=== PATIENT | female | born 1955 | race Caucasian/White ===

== ENCOUNTER 2021-06-24 11:28 | Emergency (ER) | payer SELFPAY ==
[2021-06-24 18:46] LABS: SARS-CoV-2 PCR by NAA Not Detected (NotDetected)
== END 2021-06-24 12:15 | disposition home or self-care (01) ==
LOC: MADERS 11:28
DX: J02.9 Acute pharyngitis, unspecified (principal); I10 Essential (primary) hypertension; J45.909 Unspecified asthma, uncomplicated
CPT/HCPCS: 87081; 87430; 99283; U0003; U0005

== ENCOUNTER 2021-09-09 00:32 | Emergency (ER) | payer SELFPAY ==
[2021-09-09] MEDS ORDERED: Ondansetron PF 4 MG/2 ML Vial ONE (01:14)
[2021-09-09] MEDS ORDERED: Promethazine HCl 25 MG/ML VIAL ONE (01:36)
[2021-09-09] MEDS ORDERED: Sodium Chloride 0.9% 500 ML ONE (01:37)
== END 2021-09-09 02:04 | disposition home or self-care (01) ==
LOC: MADERS 00:32
DX: A05.9 Bacterial foodborne intoxication, unspecified (principal); I10 Essential (primary) hypertension
CPT/HCPCS: 96365; 96375; J2405; J2550; J7030

== ENCOUNTER 2022-06-24 14:23 | Inpatient (IN) | payer MEDICARE ==
[2022-06-24] MEDS ORDERED: Bisacodyl 5 MG TAB PO PRN (18:44)
[2022-06-24] MEDS ORDERED: Acetaminophen 325 MG TAB PO PRN (18:44)
[2022-06-24] MEDS ORDERED: Melatonin 3 MG TAB PO PRN (18:44)
[2022-06-24] MEDS ORDERED: Bisacodyl 10 MG SUPP PR PRN (18:44)
[2022-06-24] MEDS ORDERED: Scopolamine 1.5 mg/72 hour Patch TD SCH (20:00)
[2022-06-24] MEDS: diphenhydrAMINE 25 MG CAP PO SCH ×2 (21:27→21:28)
[2022-06-24] MEDS: Gabapentin 300 MG CAP PO SCH (21:29)
[2022-06-24] MEDS: Famotidine 20 MG TAB PO SCH ×2 (21:29→22:58)
[2022-06-24] MEDS: Senokot S 8.6-50 MG TAB PO SCH (21:31)
[2022-06-24] MEDS: traMADol HCl 50 MG TAB PO SCH (23:17)
[2022-06-24] MEDS: Acetaminophen 500 MG TAB PO SCH (23:19)
[2022-06-25] MEDS: traMADol HCl 50 MG TAB PO SCH ×4 (06:33→23:12)
[2022-06-25] MEDS: Acetaminophen 500 MG TAB PO SCH ×4 (06:34→23:13)
[2022-06-25] MEDS: Ferrous Sulfate 325 MG TAB PO SCH (08:53)
[2022-06-25] MEDS: Ascorbic Acid 500 mg Chewable Tablet PO SCH (08:53)
[2022-06-25] MEDS: Gabapentin 300 MG CAP PO SCH ×3 (08:53→20:47)
[2022-06-25] MEDS: Senokot S 8.6-50 MG TAB PO SCH ×2 (08:53→20:51)
[2022-06-25] MEDS: Famotidine 20 MG TAB PO SCH ×4 (08:55→20:46)
[2022-06-26] MEDS: traMADol HCl 50 MG TAB PO SCH ×3 (06:19→17:58)
[2022-06-26] MEDS: Acetaminophen 500 MG TAB PO SCH ×3 (06:20→18:00)
[2022-06-26] MEDS: Gabapentin 300 MG CAP PO SCH ×3 (08:32→21:53)
[2022-06-26] MEDS: Famotidine 20 MG TAB PO SCH ×2 (08:32→21:53)
[2022-06-26] MEDS: Senokot S 8.6-50 MG TAB PO SCH ×2 (08:32→21:53)
[2022-06-26] MEDS: Ferrous Sulfate 325 MG TAB PO SCH (08:36)
[2022-06-26] MEDS: Ascorbic Acid 500 mg Chewable Tablet PO SCH (08:36)
[2022-06-26 09:10] LABS: Bilirubin Negative (Negative); Blood, Urine Negative (Negative); Glucose, Urine (Dipstick) Negative (Negative); Ketone, Urine Negative (Negative); Leukocyte Large (Negative); Nitrite Negative (Negative); Protein, Urine (Dipstick) Negative (Neg-Trace); Specific Gravity, Urine 1.015 (1.005-1.030)
[2022-06-26 09:11] LABS: Clarity Turbid (Clear)
[2022-06-26 09:12] LABS: Bacteria/HPF 4+ HPF (None Seen); CAUTI Indications for Culture Dysuria,urgency,freq; RBC/HPF 0-3 HPF (0-3); WBC/HPF Greater than 50 HPF (0-3)
[2022-06-26 09:14] LABS: Urine Culture Reflex Yes Yes
[2022-06-26] MEDS ORDERED: FLU VACC QS2022-23(65YR UP)/PF 240 MCG/0.7 ML SYRINGE IM ONE (18:00)
[2022-06-26] MEDS: Scopolamine 1.5 mg/72 hour Patch TD SCH (21:50)
[2022-06-26] MEDS: diphenhydrAMINE 25 MG CAP PO SCH (21:52)
[2022-06-27] MEDS: Acetaminophen 500 MG TAB PO SCH ×4 (00:01→18:10)
[2022-06-27] MEDS: traMADol HCl 50 MG TAB PO SCH ×4 (05:41→18:09)
[2022-06-27] MEDS: Ibuprofen 200 MG TAB PO PRN (08:30)
[2022-06-27] MEDS: Ascorbic Acid 500 mg Chewable Tablet PO SCH (08:31)
[2022-06-27] MEDS: Senokot S 8.6-50 MG TAB PO SCH ×2 (08:32→20:40)
[2022-06-27] MEDS: Gabapentin 300 MG CAP PO SCH ×3 (08:32→20:40)
[2022-06-27] MEDS: Famotidine 20 MG TAB PO SCH ×2 (08:32→20:40)
[2022-06-27] MEDS: Ferrous Sulfate 325 MG TAB PO SCH (08:33)
[2022-06-27] MEDS: diphenhydrAMINE 25 MG CAP PO SCH (20:40)
[2022-06-27] MEDS ORDERED: FLU VACC QS2022-23(65YR UP)/PF 240 MCG/0.7 ML SYRINGE IM ONE (23:45)
[2022-06-28] MEDS: traMADol HCl 50 MG TAB PO SCH ×4 (00:19→23:37)
[2022-06-28] MEDS: Acetaminophen 500 MG TAB PO SCH ×4 (00:20→23:36)
[2022-06-28] MEDS: Gabapentin 300 MG CAP PO SCH ×2 (08:05→20:42)
[2022-06-28] MEDS: Ferrous Sulfate 325 MG TAB PO SCH (08:05)
[2022-06-28] MEDS: Senokot S 8.6-50 MG TAB PO SCH ×2 (08:05→20:42)
[2022-06-28] MEDS: Famotidine 20 MG TAB PO SCH ×2 (08:06→20:42)
[2022-06-28] MEDS: Ascorbic Acid 500 mg Chewable Tablet PO SCH (08:06)
[2022-06-28] MEDS ORDERED: traMADol HCl 50 MG TAB ONE ×2 (08:28→17:51)
[2022-06-28] MEDS ORDERED: Gabapentin 300 MG CAP ONE ×2 (08:28→20:04)
[2022-06-28] MEDS ORDERED: Melatonin 3 MG TAB ONE ×2 (08:28→20:07)
[2022-06-28] MEDS ORDERED: Sulfameth/Trimethoprim DS 800-160mg TAB PO SCH (11:45)
[2022-06-28] MEDS ORDERED: Acetaminophen 500 MG TAB ONE ×2 (17:51→20:06)
[2022-06-28] MEDS ORDERED: Sulfameth/Trimethoprim DS 800-160mg TAB ONE (20:03)
[2022-06-28] MEDS ORDERED: diphenhydrAMINE 25 MG CAP ONE (20:04)
[2022-06-28] MEDS ORDERED: Famotidine 20 MG TAB ONE (20:05)
[2022-06-28] MEDS ORDERED: Senokot S 8.6-50 MG TAB ONE (20:06)
[2022-06-28] MEDS: diphenhydrAMINE 25 MG CAP PO SCH (20:42)
[2022-06-28] MEDS: Sulfameth/Trimethoprim DS 800-160mg TAB PO SCH (20:42)
[2022-06-29] MEDS: traMADol HCl 50 MG TAB PO SCH ×4 (05:42→17:55)
[2022-06-29] MEDS: Acetaminophen 500 MG TAB PO SCH ×4 (05:42→17:54)
[2022-06-29] MEDS: Gabapentin 300 MG CAP PO SCH ×4 (07:25→21:10)
[2022-06-29] MEDS: Ferrous Sulfate 325 MG TAB PO SCH (09:23)
[2022-06-29] MEDS: Ascorbic Acid 500 mg Chewable Tablet PO SCH (09:23)
[2022-06-29] MEDS: Senokot S 8.6-50 MG TAB PO SCH ×2 (09:24→21:09)
[2022-06-29] MEDS: Sulfameth/Trimethoprim DS 800-160mg TAB PO SCH ×2 (09:24→21:08)
[2022-06-29] MEDS: Famotidine 20 MG TAB PO SCH ×2 (09:24→21:08)
[2022-06-29] MEDS: Scopolamine 1.5 mg/72 hour Patch TD SCH (21:07)
[2022-06-29] MEDS: diphenhydrAMINE 25 MG CAP PO SCH (21:08)
[2022-06-30] MEDS: traMADol HCl 50 MG TAB PO SCH ×5 (00:44→23:52)
[2022-06-30] MEDS: Acetaminophen 500 MG TAB PO SCH ×5 (00:44→23:52)
[2022-06-30] MEDS: Sulfameth/Trimethoprim DS 800-160mg TAB PO SCH ×2 (08:56→20:38)
[2022-06-30] MEDS: Ferrous Sulfate 325 MG TAB PO SCH (08:56)
[2022-06-30] MEDS: Gabapentin 300 MG CAP PO SCH ×3 (08:56→20:39)
[2022-06-30] MEDS: Ascorbic Acid 500 mg Chewable Tablet PO SCH (08:56)
[2022-06-30] MEDS: Famotidine 20 MG TAB PO SCH ×2 (08:56→20:39)
[2022-06-30] MEDS: Senokot S 8.6-50 MG TAB PO SCH ×2 (08:57→20:38)
[2022-06-30 09:56] VITALS: BMI 24.0
[2022-06-30] MEDS: diphenhydrAMINE 25 MG CAP PO SCH (20:38)
[2022-07-01] MEDS: Acetaminophen 500 MG TAB PO SCH ×3 (05:28→17:55)
[2022-07-01] MEDS: traMADol HCl 50 MG TAB PO SCH ×3 (05:29→17:55)
[2022-07-01] MEDS: Gabapentin 300 MG CAP PO SCH ×3 (09:23→20:13)
[2022-07-01] MEDS: Sulfameth/Trimethoprim DS 800-160mg TAB PO SCH ×2 (09:23→20:13)
[2022-07-01] MEDS: Ferrous Sulfate 325 MG TAB PO SCH (09:23)
[2022-07-01] MEDS: Senokot S 8.6-50 MG TAB PO SCH ×2 (09:23→20:13)
[2022-07-01] MEDS: Famotidine 20 MG TAB PO SCH ×2 (09:23→20:13)
[2022-07-01] MEDS: Ascorbic Acid 500 mg Chewable Tablet PO SCH (09:23)
[2022-07-01] MEDS: diphenhydrAMINE 25 MG CAP PO SCH (20:13)
[2022-07-02] MEDS: traMADol HCl 50 MG TAB PO SCH ×4 (00:39→17:37)
[2022-07-02] MEDS: Acetaminophen 500 MG TAB PO SCH ×4 (00:39→17:37)
[2022-07-02] MEDS: Ascorbic Acid 500 mg Chewable Tablet PO SCH (08:25)
[2022-07-02] MEDS: Sulfameth/Trimethoprim DS 800-160mg TAB PO SCH ×2 (08:25→21:23)
[2022-07-02] MEDS: Senokot S 8.6-50 MG TAB PO SCH ×2 (08:25→21:24)
[2022-07-02] MEDS: Gabapentin 300 MG CAP PO SCH ×3 (08:25→21:23)
[2022-07-02] MEDS: Famotidine 20 MG TAB PO SCH ×2 (08:25→21:22)
[2022-07-02] MEDS: Ferrous Sulfate 325 MG TAB PO SCH (08:25)
[2022-07-02] MEDS: diphenhydrAMINE 25 MG CAP PO SCH (21:23)
[2022-07-02] MEDS: Scopolamine 1.5 mg/72 hour Patch TD SCH (21:38)
[2022-07-03] MEDS: traMADol HCl 50 MG TAB PO SCH ×4 (00:34→17:52)
[2022-07-03] MEDS: Acetaminophen 500 MG TAB PO SCH ×4 (00:36→17:52)
[2022-07-03] MEDS: Senokot S 8.6-50 MG TAB PO SCH ×2 (08:11→21:57)
[2022-07-03] MEDS: Ascorbic Acid 500 mg Chewable Tablet PO SCH (08:11)
[2022-07-03] MEDS: Famotidine 20 MG TAB PO SCH ×2 (08:11→21:57)
[2022-07-03] MEDS: Ferrous Sulfate 325 MG TAB PO SCH (08:12)
[2022-07-03] MEDS: Gabapentin 300 MG CAP PO SCH ×3 (08:12→21:57)
[2022-07-03] MEDS: Sulfameth/Trimethoprim DS 800-160mg TAB PO SCH ×2 (08:12→21:57)
[2022-07-03] MEDS: Ibuprofen 200 MG TAB PO PRN (10:38)
[2022-07-03] MEDS: diphenhydrAMINE 25 MG CAP PO SCH (21:57)
[2022-07-04] MEDS: Acetaminophen 500 MG TAB PO SCH ×4 (00:51→17:34)
[2022-07-04] MEDS: traMADol HCl 50 MG TAB PO SCH ×4 (00:52→17:31)
[2022-07-04] MEDS: Famotidine 20 MG TAB PO SCH ×2 (09:05→21:48)
[2022-07-04] MEDS: Ferrous Sulfate 325 MG TAB PO SCH (09:05)
[2022-07-04] MEDS: Ascorbic Acid 500 mg Chewable Tablet PO SCH (09:05)
[2022-07-04] MEDS: Senokot S 8.6-50 MG TAB PO SCH ×2 (09:05→21:48)
[2022-07-04] MEDS: Sulfameth/Trimethoprim DS 800-160mg TAB PO SCH ×2 (09:05→21:47)
[2022-07-04] MEDS: Gabapentin 300 MG CAP PO SCH ×3 (09:06→21:47)
[2022-07-04] MEDS ORDERED: traMADol HCl 50 MG TAB PO PRN (18:50)
[2022-07-04] MEDS ORDERED: tiZANidine HCl 4 MG TAB PO PRN (18:51)
[2022-07-04] MEDS: diphenhydrAMINE 25 MG CAP PO SCH (21:47)
[2022-07-05] MEDS: Acetaminophen 500 MG TAB PO SCH ×3 (00:50→12:21)
[2022-07-05 07:49] VITALS: BP 123/72; TEMP 97.4
[2022-07-05] MEDS ORDERED: Ondansetron ODT 4 MG TAB PO SCH (09:15)
[2022-07-05] MEDS: Senokot S 8.6-50 MG TAB PO SCH (09:38)
[2022-07-05] MEDS: Famotidine 20 MG TAB PO SCH (09:39)
[2022-07-05] MEDS: Ascorbic Acid 500 mg Chewable Tablet PO SCH (09:39)
[2022-07-05] MEDS: Gabapentin 300 MG CAP PO SCH ×2 (09:39→14:51)
[2022-07-05] MEDS: Ferrous Sulfate 325 MG TAB PO SCH (09:40)
== END 2022-07-05 15:37 | disposition home or self-care (01) | DRG 561 ==
LOC: MADMS 18:12
PROVIDERS: ADMIT Family Medicine; ATTEND Family Medicine
DX: S32.10XD Unspecified fracture of sacrum, subsequent encounter for fracture with routine healing (principal); F43.10 Post-traumatic stress disorder, unspecified; G25.81 Restless legs syndrome; J45.909 Unspecified asthma, uncomplicated; X58.XXXD Exposure to other specified factors, subsequent encounter; M62.838 Other muscle spasm; Z88.8 Allergy status to other drugs, medicaments and biological substances
CPT/HCPCS: 81001; 87077; 87086; 87186; 87811; 90471; 90662; G0008; J1650; Q0162

== ENCOUNTER 2022-08-31 14:58 | Emergency (ER) | payer MEDICARE ==
[2022-08-31] MEDS ORDERED: HYDROcodone/Acetaminophen 10/325 mg Tablet ONE (17:07)
== END 2022-08-31 18:07 | disposition home or self-care (01) ==
LOC: MADERS 14:58
DX: M54.41 Lumbago with sciatica, right side (principal); I10 Essential (primary) hypertension
CPT/HCPCS: 72110; 72170

== ENCOUNTER 2022-09-25 10:49 | Emergency (ER) | payer OTHER, MEDICARE ==
[2022-09-25] MEDS ORDERED: Sodium Chloride 0.9% 100 ML ONE (11:20)
[2022-09-25] MEDS ORDERED: Lidocaine 1% w/Epinephrine 1:100K 20 ML VIAL ONE (11:20)
[2022-09-25] MEDS ORDERED: CEFAZOLIN 2 GM VIAL ONE ×2 (11:20→11:22)
[2022-09-25] MEDS ORDERED: Ondansetron ODT 4 MG TAB ONE (11:20)
[2022-09-25] MEDS ORDERED: Boostrix 0.5 ML (Tdap) VIAL (>/=7 yrs of age) ONE (11:20)
[2022-09-25] MEDS ORDERED: Bacitracin 1 PK ONE (12:18)
[2022-09-25 13:00] LABS: #Basophils 0.1 thou/uL (0.0-0.2); #Eosinphils 0.1 thou/uL (0.0-0.7); #Lymphocytes 0.9 thou/uL (1.20-3.40); #Monocytes 0.5 thou/uL (0.11-0.59); #Neutrophils 9.4 thou/uL (1.40-6.50); %Basophils 0.7 % (0.0-1.0); %Eosinophils 0.5 % (0.0-10.0); %Lymphocytes 8.3 % (21.0-51.0); %Monocytes 4.4 % (0.0-10.0); %Neutrophils 86.1 % (42.0-75.0); Hemoglobin 13.1 g/dL (12.0-16.0); Mean Corpuscular HGB CONC 34.6 g/dL (32.0-36.0); Mean Corpuscular Hemoglobin 31.2 pg (27.0-31.0); Mean Corpuscular Volume 90.1 fl (78.0-98.0); Mean Platelet Volume 8.1 fL (7.4-10.4); Platelet Count 264 10x3/uL (130-400); RBC Distribution Width 11.6 % (11.5-14.5); White Blood Cell (WBC) Count 10.9 10x3/uL (4.8-10.8)
[2022-09-25 13:09] LABS: Prothrombin Time 13.1 sec (12.0-14.7)
[2022-09-25 13:10] LABS: PTT 30.8 sec (22.9-36.1)
[2022-09-25 13:16] LABS: ALT (SGPT) 12 U/L (8-55); AST (SGOT) 14 U/L (5-34); Albumin 3.5 g/dL (3.4-4.8); Alkaline Phosphatase 84 U/L (40-110); Anion Gap 12 mmol/L (10-20); BUN (Urea Nitrogen) 12 mg/dL (9.8-20.1); Bilirubin, Total 0.2 mg/dL (0.2-1.2); Calc. Creatinine Clearance 0 mL/min (70-130); Calcium 8.5 mg/dL (7.8-10.44); Carbon Dioxide 22 mmol/L (23-31); Chloride 108 mmol/L (98-107); Estimated GFR 80; Globulin 2.6 g/dL (2.4-3.5); Glucose 146 mg/dL (80-115); Potassium 3.3 mmol/L (3.5-5.1); Protein, Total 6.1 g/dL (5.8-8.1); Sodium 139 mmol/L (136-145)
== END 2022-09-25 17:10 | disposition admitted as inpatient to this hospital (09) ==
LOC: MADERS 10:49
DX: S62.522B Displaced fracture of distal phalanx of left thumb, initial encounter for open fracture (principal); Z23 Encounter for immunization; W54.0XXA Bitten by dog, initial encounter
CPT/HCPCS: 12002; 80053; 85025; 85610; 85730; 90471; 90715; 96374; J3490; Q0162

== ENCOUNTER 2022-10-27 17:59 | Emergency (ER) | payer MEDICARE ==
[2022-10-27] MEDS ORDERED: Ondansetron PF 4 MG/2 ML Vial ONE (18:28)
[2022-10-27 18:35] LABS: #Basophils 0.1 thou/uL (0.0-0.2); #Eosinphils 0.1 thou/uL (0.0-0.7); #Lymphocytes 0.6 thou/uL (1.20-3.40); #Monocytes 0.8 thou/uL (0.11-0.59); #Neutrophils 13.9 thou/uL (1.40-6.50); %Basophils 0.4 % (0.0-1.0); %Eosinophils 0.6 % (0.0-10.0); %Lymphocytes 4.1 % (21.0-51.0); %Monocytes 5.1 % (0.0-10.0); %Neutrophils 89.8 % (42.0-75.0); Hemoglobin 14.1 g/dL (12.0-16.0); Mean Corpuscular HGB CONC 33.8 g/dL (32.0-36.0); Mean Corpuscular Hemoglobin 30.8 pg (27.0-31.0); Mean Corpuscular Volume 91.1 fl (78.0-98.0); Mean Platelet Volume 8.5 fL (7.4-10.4); Platelet Count 304 10x3/uL (130-400); Red Blood Cell (RBC) Count 4.59 mill/uL (4.20-5.40); White Blood Cell (WBC) Count 15.5 10x3/uL (4.8-10.8)
[2022-10-27 18:53] LABS: ALT (SGPT) 8 U/L (8-55); AST (SGOT) 14 U/L (5-34); Alkaline Phosphatase 88 U/L (40-110); Anion Gap 12 mmol/L (10-20); BUN (Urea Nitrogen) 14 mg/dL (9.8-20.1); Calc. Creatinine Clearance 0 mL/min (70-130); Calcium 9.2 mg/dL (7.8-10.44); Carbon Dioxide 24 mmol/L (23-31); Chloride 108 mmol/L (98-107); Estimated GFR 78; Globulin 2.8 g/dL (2.4-3.5); Glucose 117 mg/dL (80-115); Lipase 9 U/L (8-78); Magnesium 1.9 mg/dL (1.6-2.6); Potassium 4.1 mmol/L (3.5-5.1); Protein, Total 6.8 g/dL (5.8-8.1); Sodium 140 mmol/L (136-145)
[2022-10-27 19:42] LABS: Bilirubin Negative (Negative); Blood, Urine Negative (Negative); CAUTI Indications for Culture Fever or rigors; Clarity Clear (Clear); Glucose, Urine (Dipstick) Negative (Negative); Ketone, Urine Trace mg/dL (Negative); Leukocyte Negative (Negative); Nitrite Negative (Negative); Protein, Urine (Dipstick) Negative (Neg-Trace); RBC/HPF None Seen HPF (0-3); Squamous Epithelial 0-3 HPF (0-3); Urobilinogen 0.2 mg/dL (Less than 2); WBC/HPF None Seen HPF (0-3)
[2022-10-27 19:43] LABS: Urine Culture Reflex No No
[2022-10-27 19:51] LABS: Amphetamine Detected (NotDetected); Benzodiazepine Screen Not Detected (NotDetected); Cocaine Metabolite Screen Not Detected (NotDetected); Methadone Not Detected (NotDetected); Methamphetamine Detected (NotDetected); Opiate Screen Not Detected (NotDetected); Phencyclidine (PCP) Not Detected (NotDetected); THC/Cannabinoid Screen Not Detected (NotDetected); Tricyclic Screen Not Detected (NotDetected)
[2022-10-27 19:52] LABS: Barbiturates Screen Not Detected (NotDetected); Oxycodone Screen Not Detected (NotDetected)
== END 2022-10-27 20:26 | disposition home or self-care (01) ==
LOC: MADERS 17:59
DX: K52.9 Noninfective gastroenteritis and colitis, unspecified (principal); D72.829 Elevated white blood cell count, unspecified; I10 Essential (primary) hypertension
CPT/HCPCS: 36415; 51701; 80053; 80306; 81001; 83605; 83690; 83735; 85025; 96361; 96374; J2405